=== PATIENT | female | born 2005 | race Caucasian/White ===

== ENCOUNTER 2025-07-26 19:09 | Emergency (ER) | payer OTHER, SELFPAY ==
[2025-07-26] VITALS (8 sets, daily range): BP systolic 105–139; BP diastolic 65–83; PULSE 51–95; RESP 11–17; TEMP 36.8; O2SAT 98–100
--- NOTE | 2025-07-26 19:17 | ECG_ITS ---
Test Date: 2025-07-26 19:10:16 Measurements Intervals [place] Rate: 69 P: 13 OK: 140 QRS: 39 QRSD: 82 T: 25 QT: 405 QTc: 435 Interpretive Statements SINUS RHYTHM WITH MARKED SINUS ARRHYTHMIA BASELINE ARTIFACT- I, II, III, AVR, AVL, AVF, V1-V6 NORMAL ECG No previous ECG available for comparison Electronically Signed On 07-27-2025 08:12:57 CDT by Saúl Rosen D.O.
--- NOTE | 2025-07-26 19:18 | ED_ITS ---
HPI - Dizziness General Chief Complaint: Arrhythmia/Palpitations Stated Complaint: not feeling well Time Seen by Provider: 07/26/25 19:15 History of Present Illness HPI Narrative: Pt presents with tingling all over and thinks she is having a POTS flare up. Pt complains of nausea, palpitations, lightheadedness, and NARAYAN. Pt denies history of anxiety. Related Data Allergies Allergy/AdvReac Type Severity Reaction Status Date / Time diphenhydramine (From AdvReac Vomiting Verified 07/26/25 19:22 Benadryl) Review of Systems 2 Review of Systems: All systems reviewed & are unremarkable except as noted in HPI and below Exam 2 Const: General: healthy appearing and no acute distress Nutritional Appearance: well nourished Orientation/consciousness: patient oriented x3 Limitations: no limitations Resp: Effort & Inspection: normal respiratory effort Auscultation: clear to auscultation bilaterally Cardio: Rate: regular rate Rhythm: regular rhythm GI: GI Palp: Yes Soft to palpation and No Tenderness to palpation present (GI) Auscultation: normal bowel sounds Skin: General skin exam: normal color Wounds: no wounds Neuro: General: patient oriented x3, moves all extremities, no meningeal signs, no focal motor deficits and CN's II-XI intact bilaterally Speech: n ormal speech Extrem: General: normal to inspection and no clubbing, cyanosis or edema Psych: Mental Status: mental status grossly normal Affect: normal affect Attitude: cooperative Course Vital Signs Vital signs: Vital Signs Temperature 98.2 F 07/26/25 19:09 Pulse Rate 83 07/26/25 19:09 Respiratory Rate 16 07/26/25 19:09 Blood Pressure 139/70 07/26/25 19:09 Pulse Oximetry 99 07/26/25 19:09 Oxygen Delivery Room Air 07/26/25 19:09 Temperature 98.2 F 07/26/25 19:09 Pulse Rate 66 07/26/25 19:23 Respiratory Rate 16 07/26/25 19:09 Blood Pressure 114/67 07/26/25 19:23 Pulse Oximetry 99 07/26/25 19:09 Oxygen Delivery Room Air 07/26/25 19:09 MDM - Dizziness MDM Narrative Medical decision making narrative: orthostatics no change in BP, ekg unremarkable, wbc elevated likely stress rxn no infectious etiology, electrolytes normal trop nl. Pt feels better after toradol valium and fluids Differential Diagnosis Differential diagnosis: Likely orthostatic hypotension and other (palptations electrolyte abnormality, anxiety, anemia) Lab Data Attestation: I reviewed the patient's lab results. 07/26/25 19:27 07/26/25 19:27 Labs: Lab Results 07/26/25 Range/Units 19:27 WBC 15.8 H (4.8-10.8) K/mm3 RBC 4.56 (4.20-5.40) M/mm3 Hgb 13.6 (12.0-15.0) g/dL Hct 40.0 (35.0-49.0) % MCV 87.7 (78.0-102.0) fL MCH 29.8 (27.0-31.0) pg MCHC 34.0 (32-36) g/dL RDW 11.8 (11.6-14.4) % Plt Count 369 (150-420) K/mm3 MPV 10.3 (9.2-11.8) fl Immature Gran % (Auto) 0.3 H (0.0-0.0) % Neut % (Auto) 71.0 H (50.0-70.0) % Lymph % (Auto) 21.9 (18.0-42.0) % Stephenson % (Auto) 4.8 (2.0-11.0) % Eos % (Auto) 1.4 (1.0-6.0) % Baso % (Auto) 0.6 (0.0-1.0) % Lymph # (Auto) 3.45 (1.10-4.50) K/mm3 Stephenson # (Auto) 0.75 (0.10-0.90) K/mm3 Eos # (Auto) 0.22 (0.02-0.50) K/mm3 Baso # (Auto) 0.09 (0.00-0.10) K/mm3 Abs Immat Gran (auto) 0.05 H (0.00-0.00) K/mm3 Absolute Neuts (auto) 11.22 H (1.70-7.20) K/mm3 Absolute Nucleated RBC 0.00 (0.00-0.00) K/mm3 Nucleated RBC % 0.0 (0-0.0) % Sodium 143 (137-145) mmol/L Potassium 3.5 (3.4-5.0) mmol/L Chloride 108 H (98-107) mmol/L Carbon Dioxide 22 (22-30) mmol/L Anion Gap 13 H (4-12) mmol/L BUN 5 L (7-17) mg/dL Creatinine 0.67 L (0.7-1.0) mg/dL Estim Creat Clear Calc 126 ml/min Estimated GFR > 60 (59 - ) Glucose 106 (65-110) mg/dL Calculated Osmolality 293 (285-295) mOsm/kg Calcium 10.0 (8.4-10.2) mg/dL Magnesium 1.9 (1.6-2.3) mg/dL Total Bilirubin 0.8 (0.2-1.3) mg/dL AST 36 (14-36) U/L ALT 53 H (6-35) U/L Alkaline Phosphatase 52 (38-126) U/L Troponin I < 0.012 (0.000-0.034) ng/mL Total Protein 9.6 H (6.3-8.2) g/dL Albumin 5.0 (3.5-5.1) g/dL ECG Data EKG #1: Interpretation: nsr with sinus arrythmia rate [address] or t wave changes, nl axis Discharge Plan Discharge Clinical Impression: Palpitations, Anxiety, Postural orthostatic tachycardia syndrome [POTS] Patient Disposition: Home Condition: Improved Instructions: Antibiotic Form, Heart Palpitations (ED), POTS (Postural Orthostatic Tachycardia Syndrome) (ED) Patient Language: Pashto Follow-up/Referrals: UNKNOWN,DOCTOR [Primary Care Provider]
[2025-07-26 19:30] LABS: Hematocrit 40.0 % (35.0-49.0); Hemoglobin 13.6 g/dL (12.0-15.0); Immature Granulocyte Percent A 0.3 % (0.0-0.0); Lymphocytes Absolute Auto 3.45 K/mm3 (1.10-4.50); Mean Corpuscular HGB Conc 34.0 g/dL (32-36); Mean Corpuscular Hemoglobin 29.8 pg (27.0-31.0); Mean Corpuscular Volume 87.7 fL (78.0-102.0); Nucleated Red Blood Cells Absolute Auto 0.00 K/mm3 (0.00-0.00); Nucleated Red Blood Cells Perc 0.0 % (0-0.0); Platelet Count Result 369 K/mm3 (150-420); Red Blood Count 4.56 M/mm3 (4.20-5.40); White Blood Count 15.8 K/mm3 (4.8-10.8)
--- OUTSIDE RECORDS SUMMARY | 2025-07-26 19:34 | XMS_ITS | Clinical Summary ---
Author Organization [facility] Address [address] [place] [address] Care Team Providers Care Hearing Impaired Itinerant Teacher Name Role Phone Abilio Masters MD Primary Care Provider [phone] Source Comments [facility],non-owned Affiliates and Associated Physician Practices is amultiple site organization consisting of ambulatory clinics and hospital sitesin [place], [place], [place] and [place]. This disclosure is being madepursuant to the Care Everywhere program and may not contain all information available regarding this patient. Last updated 18.[facility] Allergies No known active allergies Medications * Be aware that medications may not be up to date on this document. Alwaysverify current medications with the patient. ondansetron, disintegrating, (ZOFRAN ODT) 4 MG tablet Take 1 tablet by mouth every 6 hours as needed for Nausea/Vomitin g (Take at beginning of migraine) Allow tablet to dissolve on the tongue 20 tablet 3 9 Active naproxen (NAPROSYN) 500 MG tabletIndicatio ns:Migraine Take 1 tablet by mouth 2 times daily as needed for Pain (3 days a week at most) Reasons: Migraine 24 tablet 3 9 Active Active Problems Problem Noted Date Diagnosed Date Headache syndrome 09/12/2019 Lumbar strain 09/12/2019 Social History Tobacco Use Types Packs/Day Years Used Date Smoking Tobacco: Never Smokeless Tobacco: Never Comments Unknown Sex and Gender Information Value Date Recorded Sex Assigned at Not on file Legal Sex Female 11:34 AM CDT Gender Identity Not on file Sexual Orientation Not on file Last Filed Vital Signs Vital Sign Reading Time Taken Comments Blood Pressure 124/74 09/14/2019 1:03 PM [employer] Pulse 64 07/13/2019 11:30 AM CDT per pcp Temperature 37.1 C (98.7 F) 07/13/2019 11:30 AM CDT per pcp Respiratory Rate 20 07/13/2019 11:3 0 AM CDT per pcp Oxygen Saturation - - Inhaled Oxygen Concentration - - Weight 100.6 kg (221 lb 12.5 oz) 09/14/2019 1:03 PM [employer] Height 170.1 cm (5' 6.97) 09/14/2019 1:03 PM CS T Body Mass Index 34.77 09/14/2019 1:03 PM [employer] Plan of Treatment Health Maintenance Due Date Last Done Comments HIV SCREENING 2020 HPV VACCINE (1 - 3-dose series) 2020 CHLAMYDIA/GONORRHEA SCREENING 2021 MENINGOCOCCAL (Group B) VACC INE SHARED DECISION-MAKING (1 of 2 - Standard) 2021 HEPATITIS C SCREENING 06/16/2023 DTAP/TDAP/TD VACCINES (1 - Tdap) 2024 HEPATITIS B VACCINE (1 of 3 - 19+ 3-dose series) 2024 DEPRESSION SCREENING 10/21/2024 COVID-19 VACCINE (1 - 2023-2 5 season) 2025 INFLUENZA VACCINE (#1) 2025 ZOSTER VACCINE (1 of 2) 2055 HIB VACCINE Aged Out No longer eligi ble based on patient's age to complete this topic MENINGOCOCCAL GROUPS A/C/Y/W VACCINE Aged Out No longer eligible b ased on patient's age to complete this topic PNEUMOCOCCAL VACCINE Aged Out No long er eligible based on patient's age to complete this topic Insurance [facility] Care Teams Hearing Impaired Itinerant Teacher Relationship Specialty Start Date End Date Abilio Masters MD [address] [place] [id number] PCP - General Family Medicine 09/14/19
--- OUTSIDE RECORDS SUMMARY | 2025-07-26 19:34 | XMS_ITS | Clinical Summary ---
Author Organization [facility] Address [address] [place] [address] Phone Care Team Providers Care Stretching Press Operator Name Role Phone Abilio Masters MD Primary Care Provider [phone] Allergies No known active allergies Medications naproxen (NAPROSYN) 500 MG Tablet Take 500 mg by mouth. 09/14/2019 Active Active Problems Problem Noted Date Diagnosed Date ANGELA (generalized anxiety disorder) 12/20/2020 Major depression, recurrent 12/20/2020 Family History Relation Name Status Comments Father Brett Alive Mother Felicia Alive Social History Tobacco Use Types Packs/Day Years Used Date Smoking Tobacco: Never Smokeless Tobacco: Never Alcohol Use Standard Drinks/Week Comments Never 0 (1 standard drink = 0.6 oz pur e alcohol) AUDIT-C Answer Date Recorded Frequency of Alcohol Consumption Never 08/05/2019 Average Number of Drinks Not on file 019 Frequency of Binge Drinking Not on file 07/21 Comments No Sex and Gender Information Value Date Recorded Sex Assigned at Female 10/16/2024 11:07 PM [employer] Legal Sex Female 9:24 PM CDT Gender Identity Female 10/16/2024 11:07 PM [employer] Sexual Orientation Not on file Last Filed Vital Signs Vital Sign Reading Time Taken Comments Blood Pressure 107/80 10/17/2024 2:00 AM [employer] Pulse 106 10/17/2024 2:00 AM [employer] Temperature 37.5 C (99.5 F) 10/16/2024 10:49 PM [employer] Respiratory Rate 22 10/17/2024 2:00 AM [employer] Oxygen Saturation 100% 10/17/2024 2:00 AM [employer] Inhaled Oxygen Concentration - - Weight 77.1 kg (170 lb) 10/16/2024 10:58 PM [employer] Height 170 cm (5' 6.93) 04/15/2025 10:09 AM CDT Body Mass Index 26.63 10/16/2024 10:58 PM [employer] Plan of Treatment Upcoming Encounters Date Type Department Care Team (Late st Contact Info) Description 11/01/2025 1:00 PM [facility] [employer] Office Visit [facility] - [facility]rology - [place] [address] [place] [id number] Marck Quintero MD [address] [place] [address] Health Maintenance Due Date Last Done Comments Hepatitis C Virus (HCV) Screening 2005 TdaP Immunization 2005 Human Papillomavirus (HPV) Immunization (1 - 3-dose series) 2020 Meningococcal B Immunization (1 of 2 - Standard) 2021 Hepatitis B Immunization (1 of 3 - 19+ 3-dose series) 2024 Influenza Immunization (#1) 2025 SARS-COV-2 Immunization ( - season) 2025 Respiratory Syncytial Virus (RSV) Immunization (Adult) (1 - 1-dose 75+ series) 2080 Meningococcal Immunization (ACWY) Aged Out No longer eligible based on patient's age to complete this topic Pneumococcal Immunization Combined Aged Out No longer eligible based on patient's age to complete this topic Rotavirus Immunization Aged Out No lo nger eligible based on patient's age to complete this topic Goals Goal Patient Goal Type Associated Problems Recent Progress Patient-Stated? Author ANXIETY Anxiety On track(2020 2:39 PM CDT) No Julia Rodriguez, RETAIL POS SPECIALIST Note: to have reduction of anxiety and depression symptoms. Goal Reviewed with: patient today Readiness to change: Thinking about making a change Department associated with goal: [facility] Steps to achieve goal: to attend, at least twice monthly, counseling sessions. to identify, verbalize and process at least three contributing factors/triggers to anxiety and depression. to identify and verbalize at least three actions/skills to prevent and/or cope with anxiety and depression. to put into action, at least one time weekly, for one month, an action/skill to prevent and or cope with anxiety and depression. Depression Depression On track(2020 2:39 PM CDT) Yes Julia Rodriguez, RETAIL POS SPECIALIST Note: To reduce depression and anxiety symptoms and feel better. Goal Reviewed with: patient today Readiness to change: Thinking about making a change Department associated with goal: [facility] Steps to achieve goal: to attend, at least twice monthly, counseling sessions. to identify, verbalize and process at least three contributing factors/triggers to anxiety and depression. to identify and verbalize at least three actions/skills to prevent and/or cope with anxiety and depression. to put into action, at least one time weekly, for one month, an action/skill to prevent and or cope with anxiety and depression. Insurance MEDICAID [place]ARC[place] MEDICAID [place] Care Teams Stretching Press Operator Relationship Specialty Start Date End Date Abilio Masters MD [address] [place] [phone] PCP - General Family Medicine 08/05/19
[2025-07-26] MEDS: SODIUM CHLORIDE 0.9% IV 1,000 ML 999 ML IV CONT (19:42)
[2025-07-26] MEDS: ONDANSETRON INJ 4 MG/2 ML VIAL IV PUSH (19:43)
[2025-07-26] MEDS: KETOROLAC 15 MG/ML VIAL (*BKC) IV PUSH (19:45)
[2025-07-26] MEDS: diazePAM INJ (*CRX) 10 MG/2 ML SYRINGE 5 MG IV PUSH (19:45)
[2025-07-26 19:46] LABS: Alanine Aminotransferase 53 U/L (6-35); Albumin Level 5.0 g/dL (3.5-5.1); Alkaline Phosphatase 52 U/L (38-126); Anion Gap 13 mmol/L (4-12); Aspartate Amino Transferase 36 U/L (14-36); Bilirubin,Total 0.8 mg/dL (0.2-1.3); Blood Urea Nitrogen 5 mg/dL (7-17); Calcium 10.0 mg/dL (8.4-10.2); Carbon Dioxide 22 mmol/L (22-30); Chloride 108 mmol/L (98-107); Estimated CRCL calculation 126 ml/min; Estimated Glomerular Filt Rate > 60; Glucose 106 mg/dL (65-110); Magnesium 1.9 mg/dL (1.6-2.3); Osmolality Calculated 293 mOsm/kg (285-295); Potassium 3.5 mmol/L (3.4-5.0); Sodium 143 mmol/L (137-145); Total Protein 9.6 g/dL (6.3-8.2)
[2025-07-26 19:57] LABS: Troponin I < 0.012 ng/mL (0.000-0.034)
== END 2025-07-26 21:03 | disposition home or self-care (01) ==
PROVIDERS: Emergency Provider Emergency Medicine
DX: F41.9 Anxiety disorder, unspecified (principal); G90.A Postural orthostatic tachycardia syndrome [POTS]
CPT/HCPCS: 36415; 80053; 83735; 84484; 85025; 93005; 96361; 96374; 96375; 99284; J1885; J2405; J3360; J7030